=== PATIENT | male | born 1955 | race Caucasian/White ===

== ENCOUNTER 2020-08-17 13:24 | Emergency (ER) | payer MEDICARE, SELFPAY ==
[2020-08-17 13:35] VITALS: BP 151/101; PULSE 67; RESP 20; TEMP 37.2; O2SAT 99; BMI 24.3
--- NOTE | 2020-08-17 13:53 | ECG_ITS ---
Test Reason : CP Blood Pressure : / mmHG Vent. Rate : 064 BPM Atrial Rate : 064 BPM P-R Int : 174 ms QRS Dur : 114 ms QT Int : 398 ms P-R-T Axes : 069 -08 045 degrees QTc Int : 410 ms Normal sinus rhythm Possible Left atrial enlargement Left ventricular hypertrophy Abnormal ECG When compared with ECG of 18-SEP-2011 06:07, Questionable change in QRS axis Nonspecific T wave abnormality now evident in Anterolateral leads Referred By: Generic ED Physician Electronically Signed By:Alberto Fulton
--- NOTE | 2020-08-17 13:53 | XR_ITS ---
EXAMINATION: XR CHEST CLINICAL INFORMATION: Chest pain COMPARISON: Chest radiographs 05/07/2019, 08/19/2018; CT abdomen 01/17/2020. TECHNIQUE: Frontal and lateral views of the chest was obtained. FINDINGS: There is no pneumothorax or pleural reaction or effusion. The costophrenic sulci are clear. Heart is within the limits of normal size. The vascularity is normal. Tapering at the cardiophrenic angles is similar to prior exam and consistent with areolar tissue on CT. The hilar and mediastinal contours and bony structures are stable. Again, there are mild multilevel degenerative changes thoracic spine. XR/XR chest 2V IMPRESSION: No acute intrathoracic disease.
[2020-08-17 14:00] VITALS: PULSE 70; RESP 20; O2SAT 99
--- NOTE | 2020-08-17 14:21 | ED.CHESTPAIN ---
HPI - Chest Pain General Chief Complaint: Chest Pain Stated Complaint: chest pain Time Seen by Provider: 08/17/20 13:39 Source: patient Mode of arrival: ambulatory Limitations: no limitations History of Present Illness HPI narrative: This is a pleasant 65-year-old male with past medical history that is significant for mitral valve prolapse diagnosed and 2013 subsequently has had serial monitoring through [facility] most recently he tells me that he had echo done in August at [facility] [place], history of BPH status post cystoscopy, multiple TURPs and self catheterization daily p.r.n. for ureter stricture and anxiety disorder self manage not on any medications whom presents ambulatory via triage with complaint of intermittent pressure-like substernal chest pain ongoing for the past 2 weeks. Pain is being described as pressure like ache that will come and go. Aggravated by exertion and certain activities and alleviated with rest. He does somewhat contribute this to his anxiety as he reports that he suffers from anxiety related health and makes him very anxious to be in the hospital and thoughts of having health problems and at 1 point in 2012 he had to be hospitalized because he was having panic attacks secondary to finding out that he was diagnosed with mitral valve prolapse. States just prior to arrival he had pain that was pressure-like 2/10 and has alleviated now that he is resting. Currently no pain. No recent URI. No shortness of breath. No lower extremity swelling or pain. He denies any prior history of DVT/PE. He does tell me that he has been told that his blood pressure is on the higher side but he does not take any antihypertensives. 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 complaint: chest pain Onset (ago): week(s) (2 weeks ) Timing of current episode: episodic Onset: during exertion Pain location: substernal Pain radiation: none Severity: moderate Quality: tightness and aching Relieving factors: rest Exacerbating factors: exertion Treatment prior to arrival: none Related Data Allergies Allergy/AdvReac Type Severity Reaction Status Date / Time bee pollen [BEE STINGS] Allergy Unknown ANAPHYLAXIS Verified 08/17/20 13:39 bees Allergy Unknown Anaphylaxis Verified 08/17/20 13:39 Review of Systems Review of Systems: Constitutional: No Weight loss, No Fever, No Chills, No Night Sweats, No Fatigue, No Malaise ENT/Mouth: No Hearing loss, No Ear Pain, No Nasal Congestion, No Sinus Pain, No Hoarseness, No sore throat, No Rhinorrhea, No Swallowing Difficulty Eyes: No Eye Pain, No Swelling, No Redness, No Foreign Body, No Discharge, No Vision Changes Cardiovascular: No SOB, No Dyspnea on Exertion, No Orthopnea, No Edema, No Palpitations Respiratory: No Cough, No Sputum, No Wheezing, No Smoke Exposure, No Dyspnea Gastrointestinal: No Nausea, No Vomiting, No Diarrhea, No Constipation, No abdominal Pain, No Hematochezia, No Melena Genitourinary: no irregular bleeding, No Dysuria, No Urinary Frequency, No Hematuria, No Urinary Incontinence, No Urgency, No Flank Pain, No Urinary Flow Changes, No Hesitancy Musculoskeletal: No joint pain, No Myalgias, No Joint Swelling Skin: No Skin Lesions, No rash Neuro: No Weakness, No Numbness, No Paresthesias, No Loss of Consciousness, No Dizziness, No Headache Psych: No Social Issues Heme/Lymph: No Bruising, No Bleeding,No Lymphadenopathy Endocrine: No Polyuria, No Polydipsia, No Temperature Intolerance Yes all other systems are reviewed and are negative [facility] Past Medical History Medical History (Updated 08/17/20 @ 16:58 by Jose Roberto Bear NP) Depression Mitral valve prolapse Surgical History (Updated 08/17/20 @ 13:38 by Claudia Rodriguez) S/P TURP Social History Social History Alcohol intake: never Smoking Status: Never smoker Use of substances other than those prescribed or required for medical reasons: No Advance Directives: No Advance Directives Information Provided: Yes Physical Exam Vital Signs: Vital Signs: Last Vital Signs Temp 98.9 F 08/17/20 13:35 Pulse 69 08/17/20 19:42 Resp 15 08/17/20 19:42 BP 150/93 H 08/17/20 19:42 Pulse Ox 98 08/17/20 19:42 Body Mass Index 24.0 Reviewed Const: Other: Very forthcoming, tearful well telling me his story. General: cooperative; No acute distress or intoxicated appearing Nutritional Appearance: average body habitus Orientation/consciousness: patient oriented x3 HENMT: Head: Yes normal to inspection Ears: hearing grossly normal bilaterally Eyes: General: appearance normal, both eyes and all related structures Visual Bain: normal visual bain by confrontation Neck: Neck: Yes normal visual inspection, No positive Brudzinski's sign, No positive Kernig's sign and No tender Thyroid: Thyroid normal Chest: Chest palpation & inspection: normal inspection of the chest Resp: Effort & Inspection: normal respiratory effort Auscultation: clear to auscultation bilaterally Cardio: Jugular venous distension: no JVD Rhythm: regular rhythm Heart sounds: S1 normal heart sound present and S2 normal heart sound present GI: Inspection: Yes normal to inspection Palpation (GI): Soft to palpation Percussion: Yes normal to percussion Auscultation: normal bowel sounds : General: Yes no CVA tenderness Back/Spine/Pelvis: Back: no CVA tenderness Skin: General skin exam: no rashes or lesions noted Neuro: General: patient oriented x3 Extrem: General: Yes normal to inspection Course Consultations Consultation #1: [id number] Page placed to Cardiology Dr. Fulton - reviewed EKG There is these nonspecific T-wave changes in anterior lead given his history rec heparin gtt and d/w [facility] at [facility] [place] for transfer and further evaluation. Consultation #2: [id number] Case discussed with Qing at [facility] [facility] transfer Line who will connect me to [facility]ology covering and return call Consultation #3: [id number] Call return from [facility] [place] [facility] transfer line also [facility] cardiology Dr. Mosqueda covering [facility] Aware on heparin drip. Case discussed care excepted will call back with bed assignment. MDM - Chest Pain MDM Narrative Medical decision making narrative: In review 65-year-old male with history of mitral valve prolapse being followed by [facility]ology most recently echo August 2019, BPH status post cystoscopy/TURP with urethral strictures requiring p.r.n. catheterization once a day come in with pressure-like chest pain on off for the past 2 weeks. Otherwise no other symptoms or recent illness. EKG upon arrival normal sinus rhythm with LVH and nonspecific T-wave abnormalities in the anterior lateral leads. He subsequently underwent workup for ACS which revealed high sensitivity troponin is 667 CBC without evidence of anemia, slight leukocytosis of 11.9 but historically he has WBC is always elevated, initial coagulation factors and accepted range. D-dimer 267 within normal range for age adjusted renal function intact. No significant electrolyte derangement. Liver function tests within normal limits. Urine without evidence of infection. Rapid COVID/RSV/flu negative. Case was subsequently discussed with Cardiology Dr. Fulton- recommendation for heparin and consultation with Cardiology since patient is familiar with the service and being followed. I discussed case with Dr. Ramírez by the way of the transfer center at [facility] [place] [facility] discussed case in detail and patient accepted and to be medical services. Differential Diagnosis Differential diagnosis: Likely stable angina, atypical chest pain, st elevation myocardial infarction, costochondritis and chest pain; Unlikely fracture of rib, pneumothorax, unstable angina pectoris and biliary colic Medical Records Data Attestation: I reviewed the patient's medical records. Lab Data Attestation: I reviewed the patient's lab results. Result diagrams: 08/17/20 16:38 08/17/20 14:55 Labs: Lab Results 08/17/20 08/17/20 08/17/20 Range/Units 14:55 14:55 14:55 WBC 13.5 H (4.8-10.8) X10*3/uL RBC 5.23 (4.60-5.80) X10*6/uL Hgb 15.9 (14.0-18.0) g/dl Hct 48.0 (42-52) % MCV 91.8 (80-98) fL MCH 30.4 (27.0-33.0) pg MCHC 33.1 (31.0-36.0) g/dl RDW 13.5 (11.0-16.0) % Plt Count 291 (160-400) X10*3/uL MPV 9.6 (9.4-12.4) fL Immature Gran % (Auto) 0.4 (0.0-0.4) % Neut % (Auto) 90.9 H (45-73) % Lymph % (Auto) 5.5 L (20-40) % [place] % (Auto) 2.4 (2-11) % Eos % (Auto) 0.1 (0-4) % Baso % (Auto) 0.7 (0-2) % Lymph # (Auto) 0.8 L (1.2-4.9) X10*3/uL [place] # (Auto) 0.3 (0.1-1.2) X10*3/uL Eos # (Auto) 0.0 (0.0-0.4) X10*3/uL Baso # (Auto) 0.1 (0.0-0.2) X10*3/uL Abs Immat Gran (auto) 0.06 H (0.00-0.03) X10*3/uL Absolute Neuts (auto) 12.3 H (2.0-8.3) X10*3/uL Absolute Nucleated RBC 0.000 (0.0-0.012) X10*3/uL Nucleated RBC % (auto) 0.0 (0.0-0.2) /100WBC Smear Tech's Comments VERIFIED PT 11.9 (10.8-13.0) SEC INR 1.0 (0.9-1.1) APTT 35.2 (24.1-38.0) SEC PTT (Heparin Protocol) (53-77.9) SEC D-Dimer 262 NG/ML Hold Blue Top SEE NOTE Sodium 141 (135-145) mmol/L Potassium 5.1 (3.3-5.1) mmol/l Chloride 106 (96-108) mmol/L Carbon Dioxide 28 (22-29) mmol/L Anion Gap 12 (12-20) BUN 36 H (9-16) mg/dL Creatinine 1.09 (0.5-1.4) mg/dL Estim Creat Clear Calc 67.9 Estimated GFR > 60 Random Glucose 114 (60-115) mg/dL Calcium 9.8 (8.4-10.2) mg/dL Total Bilirubin 0.2 (0.0-1.0) mg/dL Direct Bilirubin < 0.2 (0.0-0.5) mg/dL AST 24 (5-37) U/L ALT 21 (0-40) U/L Alkaline Phosphatase 92 (39-117) U/L Troponin I High Sens (<3.5-35.0) ng/L Total Protein 7.2 (6.5-8.0) g/dL Albumin 4.5 (3.5-5.0) g/dL Lipase 27 (8-78) U/L Coronavirus (PCR) (Negative) Influenza Type A (PCR) (Negative) Influenza Type B (PCR) (Negative) RSV RNA Qual (PCR) (Negative) 08/17/20 08/17/20 08/17/20 Range/Units 14:55 14:56 16:38 WBC 11.9 H (4.8-10.8) X10*3/uL RBC 4.88 (4.60-5.80) X10*6/uL Hgb 15.0 (14.0-18.0) g/dl Hct 44.2 (42-52) % MCV 90.6 (80-98) fL MCH 30.7 (27.0-33.0) pg MCHC 33.9 (31.0-36.0) g/dl RDW 13.4 (11.0-16.0) % Plt Count 277 (160-400) X10*3/uL MPV 9.5 (9.4-12.4) fL Immature Gran % (Auto) (0.0-0.4) % Neut % (Auto) (45-73) % Lymph % (Auto) (20-40) % [place] % (Auto) (2-11) % Eos % (Auto) (0-4) % Baso % (Auto) (0-2) % Lymph # (Auto) (1.2-4.9) X10*3/uL [place] # (Auto) (0.1-1.2) X10*3/uL Eos # (Auto) (0.0-0.4) X10*3/uL Baso # (Auto) (0.0-0.2) X10*3/uL Abs Immat Gran (auto) (0.00-0.03) X10*3/uL Absolute Neuts (auto) (2.0-8.3) X10*3/uL Absolute Nucleated RBC 0.000 (0.0-0.012) X10*3/uL Nucleated RBC % (auto) 0.0 (0.0-0.2) /100WBC Smear Tech's Comments PT (10.8-13.0) SEC INR (0.9-1.1) APTT (24.1-38.0) SEC PTT (Heparin Protocol) (53-77.9) SEC D-Dimer NG/ML Hold Blue Top Sodium (135-145) mmol/L Potassium (3.3-5.1) mmol/l Chloride (96-108) mmol/L Carbon Dioxide (22-29) mmol/L Anion Gap (12-20) BUN (9-16) mg/dL Creatinine (0.5-1.4) mg/dL Estim Creat Clear Calc Estimated GFR Random Glucose (60-115) mg/dL Calcium (8.4-10.2) mg/dL Total Bilirubin (0.0-1.0) mg/dL Direct Bilirubin (0.0-0.5) mg/dL AST (5-37) U/L ALT (0-40) U/L Alkaline Phosphatase (39-117) U/L Troponin I High Sens 667.0 H (<3.5-35.0) ng/L Total Protein (6.5-8.0) g/dL Albumin (3.5-5.0) g/dL Lipase (8-78) U/L Coronavirus (PCR) NEGATIVE (Negative) Influenza Type A (PCR) NEGATIVE (Negative) Influenza Type B (PCR) NEGATIVE (Negative) RSV RNA Qual (PCR) NEGATIVE (Negative) 08/17/20 Range/Units 16:38 WBC (4.8-10.8) X10*3/uL RBC (4.60-5.80) X10*6/uL Hgb (14.0-18.0) g/dl Hct (42-52) % MCV (80-98) fL MCH (27.0-33.0) pg MCHC (31.0-36.0) g/dl RDW (11.0-16.0) % Plt Count (160-400) X10*3/uL MPV (9.4-12.4) fL Immature Gran % (Auto) (0.0-0.4) % Neut % (Auto) (45-73) % Lymph % (Auto) (20-40) % [place] % (Auto) (2-11) % Eos % (Auto) (0-4) % Baso % (Auto) (0-2) % Lymph # (Auto) (1.2-4.9) X10*3/uL [place] # (Auto) (0.1-1.2) X10*3/uL Eos # (Auto) (0.0-0.4) X10*3/uL Baso # (Auto) (0.0-0.2) X10*3/uL Abs Immat Gran (auto) (0.00-0.03) X10*3/uL Absolute Neuts (auto) (2.0-8.3) X10*3/uL Absolute Nucleated RBC (0.0-0.012) X10*3/uL Nucleated RBC % (auto) (0.0-0.2) /100WBC Smear Tech's Comments PT 12.1 (10.8-13.0) SEC INR 1.0 (0.9-1.1) APTT (24.1-38.0) SEC PTT (Heparin Protocol) 35.3 L (53-77.9) SEC D-Dimer NG/ML Hold Blue Top Sodium (135-145) mmol/L Potassium (3.3-5.1) mmol/l Chloride (96-108) mmol/L Carbon Dioxide (22-29) mmol/L Anion Gap (12-20) BUN (9-16) mg/dL Creatinine (0.5-1.4) mg/dL Estim Creat Clear Calc Estimated GFR Random Glucose (60-115) mg/dL Calcium (8.4-10.2) mg/dL Total Bilirubin (0.0-1.0) mg/dL Direct Bilirubin (0.0-0.5) mg/dL AST (5-37) U/L ALT (0-40) U/L Alkaline Phosphatase (39-117) U/L Troponin I High Sens (<3.5-35.0) ng/L Total Protein (6.5-8.0) g/dL Albumin (3.5-5.0) g/dL Lipase (8-78) U/L Coronavirus (PCR) (Negative) Influenza Type A (PCR) (Negative) Influenza Type B (PCR) (Negative) RSV RNA Qual (PCR) (Negative) Imaging Data Chest x-ray: Radiologist's impression: [address] [address] XRay Report Signed Patient: Eric Rosa LMR#: [id number] : 3Acct:[id number] Age/Sex: 65 / MADM Date: 08/17/20 Loc: HO.ED Attending Dr: Ordering Physician: Generic ED Physician Date of Service: 08/17/20 Procedure(s): XR chest 2V Accession Number(s): [id number] cc: Generic ED Physician~ EXAMINATION: XR CHEST CLINICAL INFORMATION: Chest pain COMPARISON: Chest radiographs 05/07/2019, 08/19/2018; CT abdomen 01/17/2020. TECHNIQUE: Frontal and lateral views of the chest was obtained. FINDINGS: There is no pneumothorax or pleural reaction or effusion. The costophrenic sulci are clear. Heart is within the limits of normal size. The vascularity is normal. Tapering at the cardiophrenic angles is similar to prior exam and consistent with areolar tissue on CT. The hilar and mediastinal contours and bony structures are stable. Again, there are mild multilevel degenerative changes thoracic spine. XR/XR chest 2V IMPRESSION: No acute intrathoracic disease. Dictated By:SO FAUST MD Signed By:<Electronically signed by SO FAUST MD in OV>08/17/20 1436 DD/ 1353 TD/TT: Emergency Veterinarian: MCKOY ECG Data ECG #1: Interpretation: Normal sinus rhythm Possible Left atrial enlargement Left ventricular hypertrophy Nonspecific T-wave abnormality in the anterior leads New since 09/18/2011 Scores Heart Score History: -1- moderately suspicious ECG: -1- non specific repolarization disturbance Age: -2- > or = 65 Risk factory: -1- 1 or 2 risk factors Troponin: -2- > or = 3x normal limit Score: 7 Risk: 50.1% Critical Care Time Critical Care Time Critical Care Time: Yes Total Critical Care Time: 65 Attestation: Multiple re-evaluation at bedside for evaluation of hemodynamic stability, consultation with Cardiology and arrangement of transfer to tertiary facility, management of anticoagulation therapy. Discharge Plan Discharge Clinical Impression: Non-ST elevated myocardial infarction Patient Disposition: Xfer Other Additional Instructions: Patient transferred to [facility] [place]
[2020-08-17 15:06] LABS: Basophils Absolute Auto 0.1 X10*3/uL (0.0-0.2); Basophils Percent Auto 0.7 % (0-2); Eosinophils Percent Auto 0.1 % (0-4); Hemoglobin 15.9 g/dl (14.0-18.0); Imm Gran Abs Auto 0.06 X10*3/uL (0.00-0.03); Imm Gran Pct Auto 0.4 % (0.0-0.4); Lymphocytes Absolute Auto 0.8 X10*3/uL (1.2-4.9); Lymphocytes Percent Auto 5.5 % (20-40); MANUAL DIFF FLAG SCAN; Mean Corpuscular HGB Conc 33.1 g/dl (31.0-36.0); Mean Corpuscular Hemoglobin 30.4 pg (27.0-33.0); Mean Corpuscular Volume 91.8 fL (80-98); Mean Platelet Volume 9.6 fL (9.4-12.4); Monocytes Absolute Auto 0.3 X10*3/uL (0.1-1.2); Monocytes Percent Auto 2.4 % (2-11); Neutrophils Absolute Auto 12.3 X10*3/uL (2.0-8.3); Neutrophils Percent Auto 90.9 % (45-73); Platelet Count 291 X10*3/uL (160-400); Red Blood Count 5.23 X10*6/uL (4.60-5.80); Red Cell Distribution Width 13.5 % (11.0-16.0); SCAN SMEAR FLAG 1; White Blood Count 13.5 X10*3/uL (4.8-10.8)
[2020-08-17 15:13] LABS: Prothrombin Time 11.9 SEC (10.8-13.0)
[2020-08-17 15:15] LABS: Partial Thromboplastin Time 35.2 SEC (24.1-38.0)
[2020-08-17 15:31] LABS: Alanine Aminotransferase 21 U/L (0-40); Albumin Level 4.5 g/dL (3.5-5.0); Alkaline Phosphatase 92 U/L (39-117); Anion Gap 12 (12-20); Aspartate Amino Transferase 24 U/L (5-37); Bilirubin Direct < 0.2 mg/dL (0.0-0.5); Bilirubin Total 0.2 mg/dL (0.0-1.0); Blood Urea Nitrogen 36 mg/dL (9-16); Calcium 9.8 mg/dL (8.4-10.2); Carbon Dioxide 28 mmol/L (22-29); Chloride 106 mmol/L (96-108); Creatinine Clr Calc Pharmacy 67.9; Estimated Glomerular Filt Rate > 60; Glucose Random 114 mg/dL (60-115); Lipase 27 U/L (8-78); Potassium 5.1 mmol/l (3.3-5.1); Sodium 141 mmol/L (135-145); Total Protein 7.2 g/dL (6.5-8.0)
[2020-08-17 15:32] LABS: SLIDE REVIEW VERIFIED
[2020-08-17 16:00] VITALS: PULSE 71; RESP 19; O2SAT 99
[2020-08-17 16:01] LABS: Influenza A PCR NEGATIVE (Negative); Influenza B PCR NEGATIVE (Negative); Resp Syncy Virus RNA Qual PCR NEGATIVE (Negative); SARS COV2 PCR INHOUSE NEGATIVE (Negative)
[2020-08-17 16:06] LABS: D Dimer 262 NG/ML
--- NOTE | 2020-08-17 16:08 | PC.NURSE ---
[facility] PT TX CALL @ THIS TIME @ REQUEST OF LAUNDERETTE ATTENDANT ROCKYEJRRY GRISSOM ANSWERS, TAKES PT INFO AND ASKS TO SPEAK WITH ROCKY ROCKY TAKES OVER CALL RIGHT AWAY
[2020-08-17 16:44] LABS: Hematocrit 44.2 % (42-52); Mean Corpuscular HGB Conc 33.9 g/dl (31.0-36.0); Mean Corpuscular Hemoglobin 30.7 pg (27.0-33.0); Mean Corpuscular Volume 90.6 fL (80-98); Mean Platelet Volume 9.5 fL (9.4-12.4); Platelet Count 277 X10*3/uL (160-400); Red Blood Count 4.88 X10*6/uL (4.60-5.80); Red Cell Distribution Width 13.4 % (11.0-16.0); White Blood Count 11.9 X10*3/uL (4.8-10.8)
[2020-08-17] MEDS: Heparin Sodium,Porcine 5,000 UNIT/ML VIAL 4000 UNIT IVPUSH (16:55)
[2020-08-17 16:57] VITALS: BMI 24.0
[2020-08-17] MEDS: Heparin Sodium,Porcine/1/2NS 25,000 UNIT/250 ML IV.SOLN 9.25 UNIT IVCONT (16:58)
[2020-08-17 17:00] LABS: Prothrombin Time 12.1 SEC (10.8-13.0)
[2020-08-17 17:02] LABS: PTT Heparin Drip 35.3 SEC (53-77.9)
[2020-08-17 17:40] VITALS: PULSE 70
--- NOTE | 2020-08-17 17:40 | PC.NURSE ---
RETURN CALL @ 1986 FROM JACIEL @ [facility] PT PLACEMENT ROOM ASSIGNMENT MASS MUTUAL 7, BED 3 RN TO RN [phone] RYDER
--- NOTE | 2020-08-17 18:26 | PC.NURSE ---
Report given to Keith DEVINE on M7 at [facility].
[2020-08-17 19:42] VITALS: BP 150/93; PULSE 69; RESP 15; O2SAT 98
== END 2020-08-17 22:03 | disposition other institution (70) ==
PROVIDERS: Nurse Practitioner Primary Care; Emergency Provider Emergency Medicine; PCP Internal Medicine
DX: I21.4 Non-ST elevation (NSTEMI) myocardial infarction (principal); Z20.828 Contact with and (suspected) exposure to other viral communicable diseases
CPT/HCPCS: 0241U; 36415; 71046; 80048; 80076; 83690; 84484; 85025; 85027; 85379; 85610; 85730; 93005; 96374; 99285; 99291

== ENCOUNTER 2023-09-29 02:47 | Emergency (ER) | payer MEDICARE, SELFPAY ==
--- NOTE | ~2023-09-29 | CT_ITS ---
EXAMINATION: CT ABDOMEN AND PELVIS WITHOUT CONTRAST CLINICAL INFORMATION: Possible ventral hernia. Mass felt right abdomen. COMPARISON: 01/17/2020. TECHNIQUE: Multidetector volumetric imaging was performed from the superior aspect of the liver through the pubic symphysis. Sagittal and coronal reformatted images were obtained on the technologist's workstation. This CT examination was performed using dose optimization techniques as appropriate, variously including the following: *Automated exposure control *Adjustment of mA and/or kV according to patient size (this includes techniques or standardized protocols for targeted exams where dose is matched to indication/reason for exam; i.e. extremities or head) *Use of iterative reconstruction technique DLP: 568 mGy-cm FINDINGS: LUNG BASES: The visualized lung bases are unremarkable. LIVER, GALLBLADDER, AND BILIARY TREE: The liver is normal in size, shape, and attenuation. No focal hepatic lesion or biliary ductal dilatation is present. The gallbladder is unremarkable with no evidence of radiopaque gallstones, gallbladder wall thickening, or obvious pericholecystic inflammatory changes. PANCREAS: Unremarkable. SPLEEN: Unremarkable. ADRENAL GLANDS: Unremarkable. KIDNEYS AND URETERS: The kidneys are normal in size, shape, and attenuation. No hydronephrosis, hydroureter, or calculi seen. No perinephric stranding. There is a 2 cm cyst mid to lower pole right kidney. There is a 2.4 cm cyst lower pole left kidney. BLADDER: Unremarkable. GASTROINTESTINAL TRACT: There is retained stool most significant in the right colon. The appendix is prominent in size measuring up to 7 mm but otherwise unremarkable. ABDOMINAL WALL: There is a small umbilical hernia containing fat. LYMPH NODES: Normal. VASCULAR: There is atherosclerotic plaque of the abdominal aorta and proximal branches. PELVIC VISCERA: Unremarkable. OSSEOUS STRUCTURES: There is thoracolumbar disc degenerative change. CT/CT abdomen pelvis wo IV con IMPRESSION: 1. Small umbilical hernia containing fat. 2. Bilateral renal cysts. 3. Retained stool. 4. The appendix is borderline in size measuring up to 7 mm but otherwise unremarkable. Correlation needed. Fleischner guidelines were followed.
[2023-09-29 02:52] VITALS: BP 148/97; PULSE 64; RESP 16; TEMP 37.1; O2SAT 96; BMI 28.7
[2023-09-29 03:31] VITALS: BP 174/99; PULSE 64; RESP 16; TEMP 36.6; O2SAT 99
--- NOTE | 2023-09-29 03:31 | ED.GENADULT ---
HPI - General Adult General Chief complaint: General Medical Stated complaint: Abd pain ? hernia Time Seen by Provider: 09/29/23 03:08 Source: patient and old records reviewed Mode of arrival: ambulatory Limitations: no limitations History of Present Illness HPI narrative: 68 yo male with PMH of CAD s/p 3V CABG and mitral valve valvuloplasty at in 2020 states he had a really prolonged URI back in July and [facility] put him on antibiotics, INH and anti-tussive. He now feels like R abdomen has protruding mass/henrnia. No n/v bowel or bladder issues. He just wants to know what the mass is. MD complaint: mass Onset (ago): week(s) Location: abdomen Radiation: non-radiation Severity: mild Relieving factors: none Exacerbating factors: other (cough, movement) Associated symptoms: denies other symptoms Treatments prior to arrival: none Related Data Home Medications Medication Instructions Recorded Confirmed aspirin 81 mg tablet,delayed 81 mg PO DAILY 02/11/22 release atorvastatin 80 mg tablet 80 mg PO DAILY 02/11/22 fluoxetine 20 mg capsule 20 mg PO DAILY 02/11/22 metoprolol succinate 25 mg 25 mg PO DAILY 02/11/22 tablet,extended release 24 hr Previous Rx's Medication Instructions Recorded azithromycin 250 mg tablet See Rx Instructions PO .COMPLEX #6 02/11/22 tabs Allergies Allergy/AdvReac Type Severity Reaction Status Date / Time bee pollen [BEE STINGS] Allergy Unknown ANAPHYLAXIS Verified 02/11/22 09:24 bees Allergy Unknown Anaphylaxis Verified 02/11/22 09:24 Review of Systems Review of Systems: Constitutional : No Fever, No Chills, No Fatigue ENT/Mouth : No sore throat, No Rhinorrhea Eyes: No Eye Pain, No Swelling, No Redness Cardiovascular : No Chest Pain, No SOB, No Dyspnea on Exertion Respiratory : No Cough, No Sputum Gastrointestinal : No Nausea, No Vomiting, No Diarrhea, No abdominal Pain Genitourinary : No Dysuria, No Urinary Frequency, No Hematuria, Musculoskeletal : No joint pain, No Myalgias, No Joint Swelling Skin : No Skin Lesions, No rash Neuro : No Weakness, No Numbness, No Dizziness, noHeadache All other systems reviewed and are negative PMFSH Past Medical History Attestation statement: The following information was validated with the patient. Source: old records reviewed Medical History CAD (coronary artery disease) Depression Mitral valve prolapse Surgical History S/P CABG x 3 S/P TURP Social History Social History (Updated 09/29/23 @ 03:34 by Mignon Elaine DO) Alcohol intake: never Patient Tobacco Use Status: Tobacco use Unknown Smoked in Last 30 Days: No Use of substances other than those prescribed or required for medical reasons: No Advance Directives: No Advance Directives Information Provided: No Physical Exam ED Vital Signs: Vital Signs - 24 hr 09/29/23 02:52 09/29/23 03:31 09/29/23 05:49 Temperature 98.8 F 97.8 F 97.9 F Pulse Rate 64 64 60 Respiratory Rate 16 16 14 Blood Pressure 148/97 H 174/99 H 152/89 H Pulse Oximetry 96 99 97 Oxygen Delivery Method Room Air Room Air Room Air BMI result Body Mass Index 28.7 Appearance: Alert. Oriented X3. No acute distress. Eyes: Pupils equal, round and reactive to light. ENT: Pharynx normal. Neck: Normal inspection. Neck supple. CVS: Normal heart rate and rhythm. Pulses normal. Respiratory: No respiratory distress. Breath sounds normal. Abdomen: Soft and nontender. No mass felt no hernia felt I feel scar tissue from mediastinal chest tube site but otherwise no diastasis or mass felt Skin: Skin warm and dry. Normal skin color. Normal skin turgor. Extremities: No lower extremity edema. No calf ttp Neuro: Oriented X 3. No motor deficit. No sensory deficit. Course Course Course Narrative: patient has no pain in RLQ no appendicitis concerns at this time Medical Decision Making Medical Decision Making MDM Narrative: 68 yo male wiht CAD and valve ds s/p CABG and valvuloplasty here with c/o feeling a mass/hernia R side of abdomen no GI or symptoms at this time not toxic, benign abdomen will obtain CT scan for mass. Differential Diagnosis Differential Diagnoses: The differential diagnosis associated with the presentation includes hernia, scar from old chest tube site Independent Interpretation I performed an independent interpretation of an: CT Scan Radiology Impression Discussion of test interpretation with radiology: I have reviewed the radiologist's reading. External Record Review External record reviewed: Inpatient record Discharge Plan Discharge Clinical Impression: Abdominal wall strain Qualifiers: Encounter type: initial encounter Qualified Code(s): S39.011A - Strain of muscle, fascia and tendon of abdomen, initial encounter Patient Disposition: Home, Self-Care Instructions: Muscle Strain (ED) Additional Instructions: I do not see a hernia on CT scan. It could be a muscular strain. There is no open defect on the CT scan of the abdominal wall muscles. You also could be feeling remnats of scar tissue from prior surgery chest tube sites that were exacerbated by this cough. please follow up with our general surgery team for further evaluation if this continues to bother you. ABDOMINAL WALL: There is a small umbilical hernia containing fat. your aorta also has some plaque in the finn no acute findings to suggsest large hernia or defect. Prescriptions: No Action metoprolol succinate 25 mg tablet extended release 24 hr 25 mg PO DAILY aspirin 81 mg tablet,delayed release (DR/EC) 81 mg PO DAILY atorvastatin 80 mg tablet 80 mg PO DAILY fluoxetine 20 mg capsule 20 mg PO DAILY azithromycin 250 mg tablet See Rx Instructions PO .COMPLEX Qty: 6 0RF Rx Instructions: take 500 mg today (day 1), then 250 mg for 4 days (days 2-5) PO Referrals: Jimbo Eckert MD [Physician] - (call to schedule appointment)
[2023-09-29 05:49] VITALS: BP 152/89; PULSE 60; RESP 14; TEMP 36.6; O2SAT 97
== END 2023-09-29 06:48 | disposition home or self-care (01) ==
PROVIDERS: Emergency Provider Emergency Medicine; PCP Emergency Medicine
DX: S39.011A Strain of muscle, fascia and tendon of abdomen, initial encounter (principal); R19.00 Intra-abdominal and pelvic swelling, mass and lump, unspecified site; X50.9XXA Other and unspecified overexertion or strenuous movements or postures, initial encounter; Z95.1 Presence of aortocoronary bypass graft; Z79.82 Long term (current) use of aspirin; Z79.02 Long term (current) use of antithrombotics/antiplatelets; Y93.9 Activity, unspecified; Y92.9 Unspecified place or not applicable; Y99.9 Unspecified external cause status
CPT/HCPCS: 74176; 99284

== ENCOUNTER 2023-10-11 14:32 | Outpatient (AMB) | payer MEDICARE, SELFPAY ==
--- NOTE | 2023-10-11 14:33 | MHC.OFFVIS ---
Intake Vital Signs 10/11/23 14:45 Height 5 ft 8 in Weight 188 lb BMI 28.6 BP 126/80 Blood Pressure Location Rt brachial Position Sitting Pulse 68 Intake Visit Reasons: ? small umbilical hernia Intake Note: This patient [place] [facility] [place] small umbilical hernia. Pt c/o; Onset 4 years ago, reports bulge, reports no pain, reports in Jul 2023 had viral illnesses and cough so much the pain and discomfort were more noticeable. 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 small umbilical hernia HPI Details 68-year-old male referred for an umbilical hernia. He actually went to the ER for a question of an abdominal strain 2 weeks ago. He was noted to have a small umbilical hernia and was referred to me. He says that he has had this small reducible lump on his umbilicus for many years. He says that he really did not have any pain on this area before He has a history of open heart surgery for three-vessel bypass and valvuloplasty in [place] about 3 years ago. He says that he has been doing very well after that. He denies any significant shortness of breath with activity. [facility] Medical History (Updated 10/11/23 @ 15:11 by Jimbo Eckert MD) Umbilical hernia CAD (coronary artery disease) Depression Mitral valve prolapse Surgical History History of hip surgery S/P CABG x 3 S/P TURP Social History Alcohol intake: never Patient Tobacco Use Status: Tobacco use Unknown Review of Systems Const Denies chills and Denies fever(s) Card Denies chest pain, Denies dyspnea and Denies dyspnea on exertion Resp Denies cough, Denies dyspnea and Denies dyspnea on exertion GI Denies hematochezia and Denies change in bowel habits Denies hematuria and Denies difficulty urinating Musc Denies back pain and Denies limited range of motion Neuro Denies focal weakness and Denies convulsions Psych Reports anxiety, Denies depression and Denies mood swings Physical Exam Vital Signs: Last Vital Signs Pulse 68 10/11/23 14:45 BP 126/80 10/11/23 14:45 BMI result Body Mass Index 28.6 Const General: comfortable and no acute distress Orientation/consciousness: patient oriented x3 Neck Neck: Yes no lymphadenopathy Resp Auscultation: clear to auscultation bilaterally Cardio Rhythm: regular rhythm GI Other: Umbilical hernia with a defect about 1 cm in diameter, easily reducible Palpation (GI): Soft to palpation, nontender and no guarding Neuro General: patient oriented x3 Assessment & Plan Assessment & Plan (1) Umbilical hernia: Code(s): K42.9 - Umbilical hernia without obstruction or gangrene Plan: He has a small reducible umbilical hernia as described above. He really did not have any significant pain or tenderness with this. However, he feels that he is healthy enough to undergo repair. 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 I explained to the technique of repair of the umbilical hernia with possible mesh. I discussed the risks including but not limited to bleeding, infections, bowel injury, recurrence, as well as the benefits and alternatives. I reviewed with him what to expect postoperatively He wants to proceed We will set him up for a PAT appointment as well because of his history of coronary bypass surgery and valvuloplasty. Coding Level of Care Code New Pt Level 3 (25950) Diagnoses Umbilical hernia K42.9
[2023-10-11 14:45] VITALS: BP 126/80; PULSE 68; BMI 28.6
== END 2023-10-11 15:07 | disposition home or self-care (01) ==
PROVIDERS: PCP Emergency Medicine; Visit Provider Surgery
DX: K42.9 Umbilical hernia without obstruction or gangrene (principal)
CPT/HCPCS: 99203

== ENCOUNTER → 2023-10-11 14:32 | Outpatient (BNVA) | payer MEDICARE, SELFPAY | PROVIDERS: PCP Emergency Medicine; Visit Provider Surgery | DX: K42.9 Umbilical hernia without obstruction or gangrene (principal) | CPT/HCPCS: 99202 ==

== ENCOUNTER → 2024-01-14 13:56 | Outpatient (BNV) | payer MEDICARE, SELFPAY | PROVIDERS: PCP Nurse Practitioner Family; Visit Provider Internal Medicine Cardiovascular Disease | DX: I49.8 Other specified cardiac arrhythmias (principal) | CPT/HCPCS: 93010 ==

== ENCOUNTER 2024-01-22 05:53 | Day surgery (SDC) | payer MEDICARE, SELFPAY ==
--- NOTE | 2024-01-14 | ECG_ITS ---
Test Reason : PREOP Blood Pressure : / mmHG Vent. Rate : 060 BPM Atrial Rate : 060 BPM P-R Int : 186 ms QRS Dur : 106 ms QT Int : 438 ms P-R-T Axes : 063 -21 039 degrees QTc Int : 438 ms Sinus rhythm with Fusion complexes Otherwise normal ECG When compared with ECG of 17-AUG-2020 13:33, Fusion complexes are now Present Referred By: Sanjuanita Juarez Electronically Signed By:VINCENT MEYERS MD
[2024-01-14 13:18] VITALS: BP 120/86; PULSE 65; RESP 16; O2SAT 98; BMI 26.4
--- NOTE | 2024-01-14 13:34 | P.CONAN_ITS ---
Documented by User: Sanjuanita Juarez NP 01/18/24 12:30 HPI - Anesthesia Eval Consult details Narrative: 68yo M for Repair Hernia Umbilical Reducible with Possible Mesh, 01/22/24 Follows with [facility] cardiology. CAD with AK s/p CABG x 3 and mitral valve repair 2020. Stable at 05/2023 office visit. No issues since 2020 intervention. Office notes on chart. 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 [facility] Active Problems Active Problems: All Active Problems Upper respiratory tract infection (Acute) Umbilical hernia (Acute) Past Medical History Medical History Anxiety Hx of acute bronchitis (08/2023) RSV (respiratory syncytial virus infection) (08/2023) PAD (peripheral artery disease) NSTEMI (non-ST elevated myocardial infarction) (~08/2020) ASHD (arteriosclerotic heart disease) History of transesophageal echocardiography (MICHELE) Umbilical hernia CAD (coronary artery disease) Depression Mitral valve prolapse Family History Family history of problems with anesthesia: No Surgical History Surgical History Hx of transurethral resection of prostate (~2004) Hx of cystoscopy (~2017) Hx of colonoscopy History of total left hip arthroplasty (~2021) Hx of mitral valve repair (~2020) Hx of cardiac cath S/P CABG x 3 (~2020) S/P TURP History of Problems with Anesthesia: No Social History Social History (Updated 01/14/24 @ 13:41 by Ellie Blanco RN) Household Members: None Housing: House Are you a primary healthcare administration intern to a significant other at home: No Do you presently have visiting nurse or other home services: No Alcohol intake: never Patient Tobacco Use Status: Never used Tobacco Use of substances other than those prescribed or required for medical reasons: No Have you been hit, kicked, punched, or otherwise hurt by someone within the past year? If so, by whom?: No Are you DNR?: No Advance Directives: No Advance Directives Information Provided: Yes Advance Directives on File: No Recently lost weight without trying: No Nutrition Risks: No Nutritional Risk Poor oral hygiene: No Meds Allergies Allergy/AdvReac Type Severity Reaction Status Date / Time bees Allergy Severe Anaphylaxis Verified 01/22/24 06:04 BEE STINGS Home Medications ?Medication ?Instructions ?Recorded ?Confirmed ?Last Taken ?Type aspirin 81 mg tablet,delayed 81 mg PO DAILY 02/11/22 01/14/24 01/21/24 History release atorvastatin 80 mg tablet 80 mg PO DAILY 02/11/22 01/14/24 Unknown History metoprolol succinate 25 mg 25 mg PO DAILY 02/11/22 01/14/24 01/22/24 05:30 History tablet,extended release 24 hr acetaminophen 500 mg tablet 500 mg PO Q6H PRN Pain 01/14/24 01/14/24 Unknown History albuterol sulfate 90 mcg/actuation 2 puff inhalation Q6H PRN 01/14/24 01/14/24 Unknown History aerosol inhaler (Ventolin HFA) Shortness Of Breath Or Wheezing fluoxetine 40 mg capsule 40 mg PO DAILY 01/14/24 01/14/24 01/22/24 05:30 History Exam Height,Weight and Vital Signs: Height 5 ft 8 in Weight 78.8 kg Last Vital Signs Pulse 65 01/14/24 13:18 Resp 16 01/14/24 13:18 BP 120/86 01/14/24 13:18 Pulse Ox 98 01/14/24 13:18 O2 Del Method Room Air 01/14/24 13:18 Pertinent Lab Results Pertinent Lab Results: Lab Results 01/14/24 Range/Units 14:04 WBC 7.0 (4.8-10.8) X10*3/uL RBC 4.85 (4.60-5.80) X10*6/uL Hgb 14.8 (14.0-18.0) g/dl Hct 44.9 (42.0-52.0) % MCV 92.6 (80.0-98.0) fL MCH 30.5 (27.0-33.0) pg MCHC 33.0 (31.0-36.0) g/dl RDW 13.8 (11.0-16.0) % Plt Count 291 (160-400) X10*3/uL MPV 10.3 (9.4-12.4) fL Absolute Nucleated RBC 0.000 (0.0-0.012) X10*3/uL Nucleated RBC % (auto) 0.0 (0.0-0.2) /100WBC Sodium 142 (135-145) mmol/L Potassium 4.7 (3.3-5.1) mmol/L Chloride 108 (96-108) mmol/L Carbon Dioxide 29 (22-29) mmol/L Anion Gap 10 L (12-20) BUN 25 H (9-16) mg/dL Creatinine 0.97 (0.5-1.4) mg/dL Estim Creat Clear Calc 68.5 Estimated GFR > 60 Random Glucose 100 (60-115) mg/dL Calcium 9.8 (8.4-10.2) mg/dL Narrative Narrative: EKG 01/2024 Vent. Rate : 060 BPM Atrial Rate : 060 BPM P-R Int : 186 ms QRS Dur : 106 ms QT Int : 438 ms P-R-T Axes : 063 -21 039 degrees QTc Int : 438 ms Sinus rhythm with Fusion complexes Otherwise normal ECG When compared with ECG of 17-AUG-2020 13:33, Fusion complexes are now Present Airway Mallampati Class: II TM Dist: >3cm Neck ROM: Full Loose/Missing/Broken Teeth: No (Right side permanent bridge) Heart: RRR Lungs: CTAB Assessment and Plan Assessment Anesthesia Assessment: Anesthesia Plan Discussed and PAT Visit Final Anesthetic Review Family History of Problems with Anesthesia: No History of Problems with Anesthesia: No Documented by User: Augustine Grimm MD 01/22/24 07:32 [facility] Past Medical History Medical History Anxiety Hx of acute bronchitis (08/2023) RSV (respiratory syncytial virus infection) (08/2023) PAD (peripheral artery disease) NSTEMI (non-ST elevated myocardial infarction) (~08/2020) ASHD (arteriosclerotic heart disease) History of transesophageal echocardiography (MICHELE) Umbilical hernia CAD (coronary artery disease) Depression Mitral valve prolapse Surgical History Surgical History Hx of transurethral resection of prostate (~2004) Hx of cystoscopy (~2017) Hx of colonoscopy History of total left hip arthroplasty (~2021) Hx of mitral valve repair (~2020) Hx of cardiac cath S/P CABG x 3 (~2020) S/P TURP Social History Social History (Updated 01/14/24 @ 13:41 by Ellie Blanco RN) Household Members: None Housing: House Are you a primary healthcare administration intern to a significant other at home: No Do you presently have visiting nurse or other home services: No Alcohol intake: never Patient Tobacco Use Status: Never used Tobacco Use of substances other than those prescribed or required for medical reasons: No Have you been hit, kicked, punched, or otherwise hurt by someone within the past year? If so, by whom?: No Are you DNR?: No Advance Directives: No Advance Directives Information Provided: Yes Advance Directives on File: No Recently lost weight without trying: No Nutrition Risks: No Nutritional Risk Poor oral hygiene: No Meds Allergies Allergy/AdvReac Type Severity Reaction Status Date / Time bees Allergy Severe Anaphylaxis Verified 01/22/24 06:04 BEE STINGS Home Medications ?Medication ?Instructions ?Recorded ?Confirmed ?Last Taken ?Type aspirin 81 mg tablet,delayed 81 mg PO DAILY 02/11/22 01/14/24 01/21/24 History release atorvastatin 80 mg tablet 80 mg PO DAILY 02/11/22 01/14/24 Unknown History metoprolol succinate 25 mg 25 mg PO DAILY 02/11/22 01/14/24 01/22/24 05:30 History tablet,extended release 24 hr acetaminophen 500 mg tablet 500 mg PO Q6H PRN Pain 01/14/24 01/14/24 Unknown History albuterol sulfate 90 mcg/actuation 2 puff inhalation Q6H PRN 01/14/24 01/14/24 Unknown History aerosol inhaler (Ventolin HFA) Shortness Of Breath Or Wheezing fluoxetine 40 mg capsule 40 mg PO DAILY 01/14/24 01/14/24 01/22/24 05:30 History Exam Pertinent Lab Results Pertinent Lab Results: u Lab Results 01/14/24 Range/Units 14:04 WBC 7.0 (4.8-10.8) X10*3/uL RBC 4.85 (4.60-5.80) X10*6/uL Hgb 14.8 (14.0-18.0) g/dl Hct 44.9 (42.0-52.0) % MCV 92.6 (80.0-98.0) fL MCH 30.5 (27.0-33.0) pg MCHC 33.0 (31.0-36.0) g/dl RDW 13.8 (11.0-16.0) % Plt Count 291 (160-400) X10*3/uL MPV 10.3 (9.4-12.4) fL Absolute Nucleated RBC 0.000 (0.0-0.012) X10*3/uL Nucleated RBC % (auto) 0.0 (0.0-0.2) /100WBC Sodium 142 (135-145) mmol/L Potassium 4.7 (3.3-5.1) mmol/L Chloride 108 (96-108) mmol/L Carbon Dioxide 29 (22-29) mmol/L Anion Gap 10 L (12-20) BUN 25 H (9-16) mg/dL Creatinine 0.97 (0.5-1.4) mg/dL Estim Creat Clear Calc 68.5 Estimated GFR > 60 Random Glucose 100 (60-115) mg/dL Calcium 9.8 (8.4-10.2) mg/dL Assessment and Plan Assessment Anesthesia Assessment: Chart Reviewed Final Anesthetic Review NPO: Yes Final Preanesthetic Review: No Changes in Pt Med Stat, Meds/Allgs Chart Reviewed, Consent Obtained/Reviewed and Anes Risks/Benef Reviewed Patient Risk: Intermediate Procedure Risk: Low Anesthetic Plan Anesthetic Plan: GA Disposition: Standard PACU
[2024-01-14 14:45] LABS: Hematocrit 44.9 % (42.0-52.0); Hemoglobin 14.8 g/dl (14.0-18.0); Mean Corpuscular Hemoglobin 30.5 pg (27.0-33.0); Mean Corpuscular Volume 92.6 fL (80.0-98.0); Mean Platelet Volume 10.3 fL (9.4-12.4); Platelet Count 291 X10*3/uL (160-400); Red Blood Count 4.85 X10*6/uL (4.60-5.80); Red Cell Distribution Width 13.8 % (11.0-16.0)
[2024-01-14 15:14] LABS: Anion Gap 10 (12-20); Blood Urea Nitrogen 25 mg/dL (9-16); Calcium 9.8 mg/dL (8.4-10.2); Carbon Dioxide 29 mmol/L (22-29); Chloride 108 mmol/L (96-108); Creatinine Clr Calc Pharmacy 68.5; Estimated Glomerular Filt Rate > 60; Glucose Random 100 mg/dL (60-115); Potassium 4.7 mmol/L (3.3-5.1); Sodium 142 mmol/L (135-145)
[2024-01-22 06:21] VITALS: BP 135/77; PULSE 58; RESP 15; TEMP 36.5; O2SAT 97
[2024-01-22] MEDS: Lactated Ringers 1,000 ML 100 ML IVCONT (06:31)
--- NOTE | 2024-01-22 07:27 | MHC.SHP ---
Pre-Procedural Eval Section A - 24 Hr Update-Section A only Date of Service: 01/22/24 Section B - Complete if H&P > 30 days Chief Complaint: Umbilical hernia without obstruction or gangrene Details of Present Illness: Has a small reducible umbilical mass Relevant Family History (Specify if Yes): No Relevant Social History: None Present Medications: see Short Stay Collaborative assessment Medical History: Significant History (Hypertension, asthma, hyperlipidemia) History of Previous Operations: No relevant previous surgery Allergies: Allergies Allergy/AdvReac Type Severity Reaction Status Date / Time bees Allergy Severe Anaphylaxis Verified 01/22/24 06:04 BEE STINGS Review of Systems Sugical H&P ROS: Negative: Constitution, Cardiovascular, Respiratory, Neurological, Psychiatric, Hem-Onc, Allergic/Immunologic, Gastrointestinal, Genitourinary, Musculoskeletal, Integumentary, Endocrine and Eyes/Ears/Nose/Throat Exam Surgical H&P Exam: Normal: HEENT, Normal: Heart, Normal: Lungs, Normal: Extremities, Normal: Skin and Normal: Neurological and Significant Findings: Abdomen (Small reducible umbilical hernia) Plan Diagnosis/Plan: Unchanged I have reviewed the history and physical and performed a pertinent physical examination on my patient. No changes have occurred unless specified. Time Spent With Patient Time: Total time managing care of this patient today ____ minutes.
--- NOTE | 2024-01-22 08:04 | P.OP_ITS ---
Operative Note Operative Note Date of Service: 01/22/24 Narrative: Preop diagnosis: Umbilical hernia, reducible Postop diagnosis: Umbilical hernia, reducible, about a cm in diameter Procedure: Repair of umbilical hernia with Ventralex mesh Surgeon: Jimbo Eckert MD urgent care physician assistant: RAFAEL López The patient is a 68-year-old male with a reducible umbilical hernia. He wanted to proceed with repair. He understood the technique of the planned procedure as well as the risks, benefits, and alternatives He was brought to the operating room. He was placed supine under general anesthesia via laryngeal mask airway. The abdomen was prepped and draped in the usual sterile fashion. A surgical time-out was done. The patient received cefazolin 2 g IV preoperatively I infiltrated my planned line of incision with lidocaine 1%. He had a transverse curvilinear incision on the supraumbilical margin using a blade 15. This was carried down with electrocautery through the full-thickness of the skin and subcutaneous fat. I then did dissection of the umbilicus to lift this up as a flap. I visualize the hernia which was fat containing. I the entire hernia from the umbilicus he would I did sharp dissection with Metzenbaum scissors to define the fascial defect. I was able to reduce the hernia completely. The fascial defect was about 1 cm. I used a Ventralex mesh, small- sized to reinforced this defect. I secured the Prolene straps of the mesh the fascial edge on each side with Prolene 2 sutures I closed the fascia with a [id number] Maxon 1 stitch. The umbilicus was tacked down to the fascia with a Polysorb 3-0 stitch to re-create the dimple. The subcutaneous layer was reapposed with Polysorb 3-0 interrupted sutures. Skin closure was achieved with Polysorb 4-0 subcuticular running stitch The area was infiltrated with lidocaine 1% for postop analgesia Steri-Strips and dressings were applied. The procedure was then completed The patient tolerated the procedure well. There were no immediate complications. Initial and final counts of sponges and instruments were correct. Estimated blood loss was less than 10 cc. The patient was extubated without difficulty and transferred to the recovery room with stable vital signs.
[2024-01-22 08:19] VITALS: BP 124/72; PULSE 62; RESP 16; TEMP 36.3; O2SAT 99
[2024-01-22 08:24] VITALS: BP 130/74; PULSE 57; RESP 17; O2SAT 97
[2024-01-22 08:29] VITALS: BP 129/75; PULSE 60; RESP 17; O2SAT 97
[2024-01-22 08:34] VITALS: BP 122/83; PULSE 56; RESP 17; O2SAT 96
[2024-01-22 08:49] VITALS: BP 129/81; PULSE 55; RESP 16; TEMP 36.3; O2SAT 98
== END 2024-01-22 09:12 | disposition home or self-care (01) ==
PROVIDERS: Nurse Practitioner; PCP Nurse Practitioner Family; Visit Provider Surgery
PROC: (CPT 49591; principal; 2024-01-22 07:30)
DX: K42.9 Umbilical hernia without obstruction or gangrene (principal); I25.10 Atherosclerotic heart disease of native coronary artery without angina pectoris; Z79.82 Long term (current) use of aspirin
CPT/HCPCS: 49591; 36415; 80048; 85027; 93005; C1781; J0690; J2371; J2704; J2795; J3010

== ENCOUNTER → 2024-01-22 05:53 | Outpatient (BNV) | payer MEDICARE, SELFPAY | PROVIDERS: PCP Nurse Practitioner Family; Visit Provider Surgery | DX: K42.9 Umbilical hernia without obstruction or gangrene (principal) | CPT/HCPCS: 49591 ==

== ENCOUNTER 2024-01-31 14:32 | Outpatient (AMB) | payer MEDICARE, SELFPAY ==
--- NOTE | 2024-01-31 14:42 | MHC.OFFVIS ---
Intake Visit Reasons: S/P umbilical hernia Intake Note: This patient presents for a post-op assessment status post umbilical hernia repair. Patient c/o; report no complaints pertaining to surgery. 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 He tolerated the procedure well. He currently denies significant complaints. [facility] Medical History Anxiety Hx of acute bronchitis (08/2023) RSV (respiratory syncytial virus infection) (08/2023) PAD (peripheral artery disease) NSTEMI (non-ST elevated myocardial infarction) (~08/2020) ASHD (arteriosclerotic heart disease) History of transesophageal echocardiography (MICHELE) Umbilical hernia CAD (coronary artery disease) Depression Mitral valve prolapse Surgical History History of umbilical hernia repair Hx of transurethral resection of prostate (~2004) Hx of cystoscopy (~2017) Hx of colonoscopy History of total left hip arthroplasty (~2021) Hx of mitral valve repair (~2020) Hx of cardiac cath S/P CABG x 3 (~2020) S/P TURP Social History Household Members: None Housing: House Are you a primary personal care aide to a significant other at home: No Do you presently have visiting nurse or other home services: No Alcohol intake: never Comment: COUNT CORRECT Patient Tobacco Use Status: Never used Tobacco Review of Systems Const Denies chills and Denies fever(s) Card Denies chest pain, Denies dyspnea and Denies dyspnea on exertion Resp Denies cough, Denies dyspnea and Denies dyspnea on exertion GI Denies hematochezia and Denies change in bowel habits Denies hematuria and Denies difficulty urinating Musc Denies back pain and Denies limited range of motion Neuro Denies focal weakness and Denies convulsions Psych Denies depression and Denies mood swings Physical Exam Const General: comfortable and no acute distress Resp Effort & Inspection: normal respiratory effort GI Other: Umbilical hernia repair site is well healed, repair intact, no evidence of infection Palpation (GI): Soft to palpation Assessment & Plan Assessment & Plan (1) Umbilical hernia: Code(s): K42.9 - Umbilical hernia without obstruction or gangrene Category: Medical Plan: Status post repair with mesh. He is doing well. His repair site is intact. The incision is healing well. I advised him to avoid he lifting anything more than 20 lb for least 3 more weeks. He can follow up on a p.r.n. basis. Coding Level of Care Code Global (80283) Diagnoses Umbilical hernia K42.9
== END 2024-01-31 15:08 | disposition home or self-care (01) ==
PROVIDERS: PCP Nurse Practitioner Family; Visit Provider Surgery
DX: K42.9 Umbilical hernia without obstruction or gangrene (principal)
CPT/HCPCS: 99212

== ENCOUNTER → 2024-01-31 14:32 | Outpatient (BNVA) | payer MEDICARE, SELFPAY | PROVIDERS: PCP Nurse Practitioner Family; Visit Provider Surgery | DX: Z09 Encounter for follow-up examination after completed treatment for conditions other than malignant neoplasm (principal); Z87.19 Personal history of other diseases of the digestive system; Z98.890 Other specified postprocedural states | CPT/HCPCS: 99212 ==

== ENCOUNTER 2024-03-03 19:25 | Emergency (ER) | payer MEDICARE, SELFPAY ==
[2024-03-03 19:33] VITALS: BP 97/66; PULSE 59; RESP 18; TEMP 36.6; O2SAT 96; BMI 27.6
--- NOTE | 2024-03-03 19:35 | ED_ITS ---
HPI - Eye Problem General Chief complaint: Eye Problems Stated complaint: L eye redness, hit by a branch Time Seen by Provider: 03/03/24 21:26 Source: patient Mode of arrival: ambulatory Limitations: no limitations History of Present Illness HPI Narrative: Patient is a 68-year-old male who presents to the emergency department for evaluation. He reports that he was picking a peach off a tree when a branch accidentally scratched the lateral corner of his left eye. He reports that it feels irritated but is not particularly painful. He denies any vision changes. Denies any headache associated with this. He does not wear contact lenses. He reports his tetanus vaccination is up-to-date within the past 5 years. Related Data Home Medications ?Medication ?Instructions ?Recorded ?Confirmed aspirin 81 mg tablet,delayed 81 mg PO DAILY 02/11/22 01/14/24 release atorvastatin 80 mg tablet 80 mg PO DAILY 02/11/22 01/14/24 metoprolol succinate 25 mg 25 mg PO DAILY 02/11/22 01/14/24 tablet,extended release 24 hr acetaminophen 500 mg tablet 500 mg PO Q6H PRN Pain 01/14/24 01/14/24 albuterol sulfate 90 mcg/actuation 2 puff inhalation Q6H PRN 01/14/24 01/14/24 aerosol inhaler (Ventolin HFA) Shortness Of Breath Or Wheezing fluoxetine 40 mg capsule 40 mg PO DAILY 01/14/24 01/14/24 Previous Rx's ?Medication ?Instructions ?Recorded ibuprofen 600 mg tablet 600 mg PO Q6H PRN pain #25 tabs 01/22/24 oxycodone 5 mg tablet 5 mg PO Q4H PRN pain #25 tabs 01/22/24 ofloxacin 0.3 % eye drops 2 drp ophthalmic (eye) QID 7 days 03/03/24 #5 mL Allergies Allergy/AdvReac Type Severity Reaction Status Date / Time bees Allergy Severe Anaphylaxis Verified 03/03/24 19:37 BEE STINGS Review of Systems Review of Systems: Yes all other systems are reviewed and are negative PMFSH Past Medical History Attestation statement: The following information was validated with the patient. Source: old records reviewed Medical History Anxiety Hx of acute bronchitis (08/2023) RSV (respiratory syncytial virus infection) (08/2023) PAD (peripheral artery disease) NSTEMI (non-ST elevated myocardial infarction) (~08/2020) ASHD (arteriosclerotic heart disease) History of transesophageal echocardiography (MICHELE) Umbilical hernia CAD (coronary artery disease) Depression Mitral valve prolapse Surgical History History of umbilical hernia repair (~01/22/24) Hx of transurethral resection of prostate (~2004) Hx of cystoscopy (~2017) Hx of colonoscopy History of total left hip arthroplasty (~2021) Hx of mitral valve repair (~2020) Hx of cardiac cath S/P CABG x 3 (~2020) S/P TURP Social History Social History Household Members: None Housing: House Are you a primary health and social care teacher to a significant other at home: No Do you presently have visiting nurse or other home services: No Alcohol intake: never Comment: COUNT CORRECT Patient Tobacco Use Status: Never used Tobacco Advance Directives: No Advance Directives Information Provided: No Do you have a plan to hurt others: No Plan Physical Exam Vital Signs: Vital Signs: Last Vital Signs Temp 98.3 F 03/03/24 23:09 Pulse 52 03/03/24 23:09 Resp 15 03/03/24 23:09 BP 123/77 03/03/24 23:09 Pulse Ox 95 03/03/24 23:09 O2 Del Method Room Air 03/03/24 23:09 BMI result Body Mass Index 27.6 Appearance: Alert.?Oriented to person, place and time. No acute distress. ?Normal affect. Eyes: Pupils equal, round and reactive to light.? No hyphema. Negative Madeline sign. Sclera injected erythematous on the last subconjunctival hemorrhage. Small area of fluorescein uptake at 3 o'clock- 4 o'clock concerning for corneal abrasion. Visual acuity is normal. intra-ocular pressure 16 on the right, 17 on the left. CVS: Heart sounds normal. Normal heart rate and rhythm.? Pulses normal.?? Respiratory: No respiratory distress.? Lung sounds clear to auscultation bilaterally?? Skin: Skin warm and dry.? Normal skin color.? Neuro: Moves all extremities spontaneously. Sensation intact bilaterally. CN II- XII intact. No focal neuro deficits. Ambulates with normal steady gait. Course Course Course Narrative: This is an RME: Additional HPI, ROS, PE not included below will be deferred to primary provider. RME assessment and note performed by: Georgia Saleem PA-C This is a 22-gpuw-jns-male, CAD s/p 3V CABG and mitral valve valvuloplasty at in 2020 who presents to the ER with a complaint of left eye irritation. Was picking a peach off a tree and a branch scratched him in his left eye. No blurred vision, no current pain. Does not wear contacts. Plan: Eye ecamination Medications Administered Discontinued Medications Generic Name Dose Route Start Last Admin Trade Name Ubaldoq PRN Reason Stop Dose Admin Fluorescein Sodium 1 strip 03/03/24 19:38 03/03/24 21:34 Fluorescein Sodium Strip EYE-LEFT 03/03/24 19:39 1 strip ONCE ONE Administration Tetracaine HCl 1 drop 03/03/24 19:38 03/03/24 21:34 Tetracaine Hcl/Pf 0.5% Oph Simona 4 Ml Drops EYE-LEFT 03/03/24 19:39 1 drop ONCE ONE Administration Medical Decision Making Medical Decision Making MDM Narrative: Patient is a 5-year-old male past medical history of CAD s/p 3V CABG and mitral valve valvuloplasty at in 2020 who presents emergency department for evaluation of left eye injury as per HPI. Admits to scratching of the eye, denies this to be a penetrating injury. He is without pain, no change in acuity, Madeline sign is negative, no hyphema, do not suspect globe rupture. Restrained examination not consistent with orbital fracture. I am unclear to be retro-orbital hemorrhage. On evaluation he has fluorescein uptake concerning for a corneal abrasion, for which she was prescribed antibiotic drops and discussed outpatient follow-up with his computer security manager. Discussed worrisome signs and symptoms that would warrant re-evaluation in the emergency department. Differential Diagnosis Differential Diagnoses: The differential diagnosis associated with the presentation includes (See narrative above) External Record Review External record reviewed: Outpatient record Prescription Management I considered prescription management with: Antibiotic Discharge Plan Discharge Clinical Impression: Corneal abrasion Patient Disposition: Home, Self-Care Instructions: Corneal Abrasion (ED) Additional Instructions: Use antibiotic eyedrops as prescribed. Follow-up with Dr. Colon. Return to emergency department with any new or worsening symptoms or concerns Prescriptions: New ofloxacin 0.3 % drops 2 drp ophthalmic (eye) QID 7 Days Qty: 5 0RF No Action acetaminophen 500 mg Tablet 500 mg PO Q6H PRN (Reason: Pain) albuterol sulfate [Ventolin HFA] 90 mcg/actuation Hfa Aerosol Inhaler 2 puff INHALATION Q6H PRN (Reason: Shortness Of Breath Or Wheezing) fluoxetine 40 mg Capsule 40 mg PO DAILY oxycodone 5 mg tablet 5 mg PO Q4H PRN (Reason: pain) Qty: 25 0RF Rx Instructions: Partial Fill upon patient request. ibuprofen 600 mg tablet 600 mg PO Q6H PRN (Reason: pain) Qty: 25 0RF metoprolol succinate 25 mg tablet extended release 24 hr 25 mg PO DAILY aspirin 81 mg tablet,delayed release (DR/EC) 81 mg PO DAILY atorvastatin 80 mg tablet 80 mg PO DAILY Referrals: Morris Colon [Physician] - Interventions: ED Discharge Assessment Last Done: 03/03/24 23:09 Discharge Date/Time: 03/03/24 23:11 Print Language: Indonesian
[2024-03-03 20:00] VITALS: BP 117/72; PULSE 53; RESP 16; TEMP 36.5; O2SAT 96
[2024-03-03] MEDS: Fluorescein Sodium STRIP 1 STRIP EYE-LEFT (21:34)
[2024-03-03] MEDS: Tetracaine HCl/PF 0.5% Oph Sol 4 ML DROPS 1 DROP EYE-LEFT (21:34)
[2024-03-03 22:00] VITALS: BP 123/77; PULSE 52; RESP 15; TEMP 36.8; O2SAT 95
[2024-03-03 23:09] VITALS: BP 123/77; PULSE 52; RESP 15; TEMP 36.8; O2SAT 95
== END 2024-03-03 23:11 | disposition home or self-care (01) ==
PROVIDERS: Emergency Provider Internal Medicine; PCP Nurse Practitioner Family
DX: S05.02XA Injury of conjunctiva and corneal abrasion without foreign body, left eye, initial encounter (principal); Y29.XXXA Contact with blunt object, undetermined intent, initial encounter; Y93.89 Activity, other specified; Y92.74 Orchard as the place of occurrence of the external cause; Y99.8 Other external cause status
CPT/HCPCS: 99283

== ENCOUNTER 2024-08-11 09:38 | Outpatient (AMB) | payer MEDICARE, SELFPAY ==
--- NOTE | 2024-08-11 10:11 | AM.OFFWIN_ITS ---
Intake Vital Signs 08/11/24 10:12 Weight 186 lb BP 128/68 Blood Pressure Location Rt brachial Position Sitting Pulse 68 Pulse Source Pulse Oximeter Temp 98.3 F Temp Source Oral Pulse Oximetry (%) 95 Oxygen Delivery Method Room Air Intake Visit Reasons: EP lower abd pain, almost passed out this AM Intake Note: Patient here lower abd pain that has been present for a couple of days, he also wanted to talk about right ear pain and woke up this morning with slight chills and had to sit down on the bathroom floor. Patient Tobacco Use Status: Never used Tobacco Allergies bees Allergy (Severe, Verified 08/11/24 10:14) Anaphylaxis BEE STINGS Do you need a note to return to daycare/school/sports/work: No HPI EP lower abd pain, almost passed out this AM HPI Details This note is constructed using voice recognition software. While every effort has been made to ensure accuracy, air pollution compliance inspector errors may have been included. The patient is a 69 year old man who presents to the clinic today with lower abdomen pain bilaterally for the past 5 days. He notes that due to the holidays he has been eating foods that are different from his normal. He has been moving his bowels less frequently. He denies fever, chills, bright red blood per rectum, nausea vomiting. He reports that typically he has a diet very high in vegetables, which he has not been taking in due to the holidays. He also reports that his right ear has a mild pressure in it intermittently, no cough, shortness of breath, sinus congestion, or other URI symptoms. He reports chronic history of cerumen impaction, and he typically uses oil in his ear which seems to help the symptoms. [facility] Medical History Anxiety Hx of acute bronchitis (08/2023) RSV (respiratory syncytial virus infection) (08/2023) PAD (peripheral artery disease) NSTEMI (non-ST elevated myocardial infarction) (~08/2020) ASHD (arteriosclerotic heart disease) History of transesophageal echocardiography (MICHELE) Umbilical hernia CAD (coronary artery disease) Depression Mitral valve prolapse Surgical History History of umbilical hernia repair (~06/11/24) Hx of transurethral resection of prostate (~2004) Hx of cystoscopy (~2017) Hx of colonoscopy History of total left hip arthroplasty (~2021) Hx of mitral valve repair (~2020) Hx of cardiac cath S/P CABG x 3 (~2020) S/P TURP Social History Household Members: None Housing: House Are you a primary restorative care technician to a significant other at home: No Do you presently have visiting nurse or other home services: No Alcohol intake: never Comment: COUNT CORRECT Patient Tobacco Use Status: Never used Tobacco Review of Systems Const All systems reviewed & are unremarkable except as noted in HPI and below Physical Exam Vital Signs: Last Vital Signs Temp 98.3 F 08/11/24 10:12 Pulse 68 08/11/24 10:12 BP 128/68 08/11/24 10:12 Pulse Ox 95 08/11/24 10:12 Oxygen Delivery Method Room Air 08/11/24 10:12 Const General: cooperative, healthy appearing, comfortable, no acute distress and well developed Orientation/consciousness: patient oriented x3 Limitations: no limitations HEENT Head: Yes normal to inspection Ears: hearing grossly normal bilaterally and TM's normal bilaterally (Mild cerumen in canal) General nose exam: Normal external nose present Face and sinus: Yes normal facial exam Eyes General: appearance normal, both eyes and all related structures Neck Neck: Yes normal visual inspection and Yes full ROM Resp Effort & Inspection: normal respiratory effort and able to speak in complete sentences Auscultation: clear to auscultation bilaterally Cardio Rate: regular rate Rhythm: regular rhythm Heart sounds: normal S1 and S2 GI Inspection: Yes normal to inspection Palpation (GI): Soft to palpation and nontender Percussion: Yes normal to percussion Auscultation: Hypoactive bowel sounds present Skin General skin exam: no rashes or lesions noted Neuro General: patient oriented x3 Assessment & Plan Assessment & Plan (1) Constipation: Code(s): K59.00 - Constipation, unspecified Qualifiers: Constipation type: unspecified constipation type Qualified Code(s): K59.00 - Constipation, unspecified Plan: Reassuring physical examination, no signs or concerns for diverticulitis or appendicitis based on physical examination and history. Advised patient to in crease dietary fiber, may try supplemental for the next several days to help improve his symptoms. Advised follow up with worsening or failure to resolve. Advised ER with sudden acute pain, fever, or loss of appetite. Plan See above for full details and plan. Hard cerumen present in canal, not impacted. Advised patient try a Debrox for symptomatic management. Coding Level of Care Code Est Pt Level 3 (13912) Diagnoses Constipation, unspecified constipation type K59.00 Constipation type: unspecified constipation type
[2024-08-11 10:12] VITALS: BP 128/68; PULSE 68; TEMP 36.8; O2SAT 95
== END 2024-08-11 10:41 | disposition home or self-care (01) ==
PROVIDERS: PCP Nurse Practitioner Family; Visit Provider Registered Nurse
DX: K59.00 Constipation, unspecified (principal)

== ENCOUNTER → 2024-08-11 09:38 | Outpatient (BNVA) | payer MEDICARE, SELFPAY | PROVIDERS: PCP Nurse Practitioner Family; Visit Provider Registered Nurse | DX: K59.00 Constipation, unspecified (principal) | CPT/HCPCS: 99212 ==

== ENCOUNTER 2025-03-09 09:40 | Outpatient (AMB) | payer MEDICARE, SELFPAY ==
--- NOTE | 2025-03-09 09:50 | A.OFFVIS_ITS ---
Vital Signs 03/09/25 09:55 Height 5 ft 10 in Weight 180 lb BMI 25.8 BP 128/68 Blood Pressure Location Rt brachial Position Sitting Pulse 66 Pulse Source Pulse Oximeter Pulse Oximetry (%) 96 Oxygen Delivery Method Room Air Intake Visit Reasons: colo screening Intake Note: New pt for recall colo. Last in 2019 w/ Dr. Goyal. Hx of TA polypectomy. CC; Pt denies any GI sx or concerns at this time. Vocational Services Specialist Required: No Allergies bees Allergy (Severe, Verified 03/09/25 09:50) Anaphylaxis BEE STINGS HPI HPI colo screening: Details: 69 year old? male with past medical history of umbilical hernia, CAD, NSTEMI in 2020 is here today for pre colonoscopy screening.? Patient was sent to us by his PCP.? Last colonoscopy in March of [address] Goyal. Tubular adenoma without high-grade dysplasia or carcinoma found in hepatic flexure.? Patient denies any gastrointestinal symptoms in the past or at present.? No family history of colon cancer. Patient had NSTEMI in 2020. Three-vessel disease, CABG x3. [facility] # [phone]. ? Denies history of difficulty with sedation or anesthesia in the past.? Negative for history of sleep apnea.? Denies any history of cardiac, renal, pulmonary, or hepatic disease.?? No history of infectious? diseases like hepatitis A, B, C, HIV or tuberculosis.? Patient is on low-dose aspirin PFSH Medical History Anxiety Hx of acute bronchitis (08/2023) RSV (respiratory syncytial virus infection) (08/2023) PAD (peripheral artery disease) NSTEMI (non-ST elevated myocardial infarction) (~08/2020) ASHD (arteriosclerotic heart disease) History of transesophageal echocardiography (MICHELE) Umbilical hernia CAD (coronary artery disease) Depression Mitral valve prolapse Surgical History S/P colon polypectomy History of umbilical hernia repair (~01/22/24) Hx of transurethral resection of prostate (~2004) Hx of cystoscopy (~2017) Hx of colonoscopy History of total left hip arthroplasty (~2021) Hx of mitral valve repair (~2020) Hx of cardiac cath S/P CABG x 3 (~2020) S/P TURP Social History Household Members: None Housing: House Are you a primary career development engineer to a significant other at home: No Do you presently have visiting nurse or other home services: No Alcohol intake: never Comment: COUNT CORRECT Patient Tobacco Use Status: Never used Tobacco Review of Systems Const Denies weight gain and Denies weight loss ENT Reports no additional complaints, Denies dysphagia and Denies odynophagia Card Reports no additional complaints Resp Reports no additional complaints GI Denies abdominal pain, Denies belching, Denies melena, Denies bloating, Denies change in bowel habits, Denies dysphagia, Denies excessive flatus, Denies d yspepsia, Denies heartburn, Denies diarrhea, Denies loose stools, Denies nausea, Denies odynophagia and Denies vomiting Reports no additional complaints Musc Reports no additional complaints Neuro Reports no additional complaints Psych Reports no additional complaints Endo Reports no additional complaints Physical Exam Vital Signs: Last Vital Signs Pulse 66 03/09/25 09:55 BP 128/68 03/09/25 09:55 Pulse Ox 96 03/09/25 09:55 Oxygen Delivery Method Room Air 03/09/25 09:55 BMI result Body Mass Index 25.8 Const General: healthy appearing, no acute distress and well developed Nutritional Appearance: well nourished Orientation/consciousness: patient oriented x3 Resp Effort & Inspection: normal respiratory effort, able to speak in complete sentences, no tracheal deviation and symmetric chest movement Auscultation: clear to auscultation bilaterally Cardio Rate: regular rate GI Inspection: Yes normal to inspection and No distended Palpation (GI): Soft to palpation, not firm, nontender and No hepatosplenomegaly present Auscultation: normal bowel sounds General: Yes no CVA tenderness Back/Spine/Pelvis Back: no CVA tenderness Skin General skin exam: elasticity normal, turgor normal and dry skin Neuro General: patient oriented x3 Psych Appearance: grossly normal Mental Status: mental status grossly normal Assessment & Plan Assessment & Plan (1) Screen for colon cancer: Code(s): Z12.11 - Encounter for screening for malignant neoplasm of colon Plan Patient denies any GI, cardiac or respiratory symptoms.? Denies any issues with anesthesia in the past.? Denies any history of sleep apnea.? No history infectious diseases in the past or present.? Patient is on low-dose aspirin. No family or personal history of colon cancer. Patient sees Dr. Manriquez in [facility] phone # [phone]. Patient denies melena, hematochezia, unintentional weight loss or ribbon like stools.? Discussed at length the pre-procedure,? prep, diet & medications as well as what to expect prior, during and after the procedure.?? Stressed the importance of good bowel prep.? Recommended the use of Vaseline or Calmoseptine OTC & baby wipes with bowel movements to promote comfort.? ?Patient verbalizes understanding and agrees to plan of care.? He was given the opportunity to ask questions and all questions answered.? We will see him after the procedure.? Medications: New bisacodyl (Dulcolax (bisacodyl)) take 4 tabs at noon the day before your colonoscopy 20 mg (4 x 5 mg) PO ONCE 4 tabs 0RF constipation 1 day Z12.11 - Encounter for screening for malignant neoplasm of colon polyethylene glycol 3350 (Miralax) As directed by gastroenterology department at [facility] 238 grams PO ONCE 238 grams 0RF Z12.11 - Encounter for screening for malignant neoplasm of colon Coding Level of Care Code New Pt Level 3 (81012) Diagnoses Screen for colon cancer Z12.11 Time Spent (min) 40 Comment 30 minutes spent with patient and additional 10 minutes spent reviewing his records
[2025-03-09 09:55] VITALS: BP 128/68; PULSE 66; O2SAT 96; BMI 25.8
--- OUTSIDE RECORDS SUMMARY | 2025-03-09 10:34 | XMS_ITS ---
Author Name [facility] Organization Unknown Allergies Allergen Reaction Severity Comment Documented Date Source Statu s BEE VENOM UNKNOWN/PATIENT AND FAMILY UNABLE TO DEFINE 08/16/2023 [facility] active Problems Problem Status Onset Date Problem Type Date of Resolution Source Urethral stricture active 2024-08-28 ProblemAct [facility] Bilateral impacted cerumen active EncounterDiagnosisAct [facility] Abnormal auditory perception of right ear active EncounterDiagnosisAct [facility] Achilles tendinitis active 2021-12-05 ProblemAct [facility] Peripheral arterial disease active 2021-09-28 ProblemAct [facility] Arteriosclerosis of coronary artery active 2024-08-28 ProblemAct [facility] History of coronary artery bypass surgery active 2020-08-24 ProblemAct [facility] Umbilical hernia active 2024-08-28 ProblemAct [facility] Impaired fasting glucose active 2024-08-28 ProblemAct [facility] Major depressive disorder in full remission active 2024-08-28 ProblemAct [facility] History of total hip replacement active 2021-09-19 ProblemAct [facility] Meralgia paresthetica active 2024-08-28 ProblemAct [facility] Mitral valve prolapse active 2024-08-28 ProblemAct [facility] Arthritis of left hip active 2024-08-28 ProblemAct [facility] Adenomatous polyp of colon active 2024-08-28 ProblemAct [facility] Arthropathy active 2024-08-28 ProblemAct [facility] Immunizations Vaccine Date Source Lot Number Status Pneumococcal Conjugate 20-Valent 05/16/2023 [facility] [id number] completed Influenza Virus Trivalent Sp lit Vaccine (MDV) IM 05/14/2023 [facility] [id number] completed Pneumococcal Polysaccharide 23-Valent 08/30/2021 [facility] [id number] completed Influenza Virus Trivalent Sp lit Vaccine (MDV) IM 05/19/2021 [facility] [id number] completed Influenza Whole 04/28/2020 [facility] UNK completed Zoster Vaccine Recombinant (Shingrix) 04/28/2020 [facility] UNK completed Zoster Vaccine Recombinant (Shingrix) 06/12/2019 [facility] UNK completed Influenza Whole 05/28/2019 [facility] UNK completed Pneumococcal Conjugate 13-Valent 07/19/2018 [facility] UNK completed Influenza Virus Trivalent Sp lit Vaccine (MDV) IM 05/31/2018 [facility] [id number] completed Pneumococcal Conjugate 13-Valent 05/31/2018 [facility] [id number] completed Influenza Virus Trivalent Sp lit Vaccine (MDV) IM 04/27/2018 [facility] UNK completed Influenza Virus Trivalent Sp lit Vaccine (MDV) IM 08/24/2017 [facility] [id number] completed Influenza Virus Trivalent Sp lit Vaccine (MDV) IM 06/27/2016 [facility] [id number] completed Influenza Virus Trivalent Sp lit Vaccine (MDV) IM 05/13/2015 [facility] [id number] completed Tdap 05/10/2015 [facility] [id number] completed Zoster Vaccine Live/Attenuated (Zostavax) 10/30/2014 [facility] UNK completed Influenza Virus Trivalent Sp lit Vaccine (MDV) IM 06/10/2014 [facility] [id number] completed Influenza Virus Trivalent Sp lit Vaccine (MDV) IM 05/30/2012 [facility] [id number] completed Influenza Virus Trivalent Sp lit Vaccine (MDV) IM 04/21/2012 [facility] UNK completed Influenza Virus Trivalent Sp lit Vaccine (MDV) IM 06/11/2011 [facility] UNK completed DT 09/18/2009 [facility] [id number] completed Influenza Virus Trivalent Sp lit Vaccine (MDV) IM 07/15/2009 [facility] [id number] completed Tdap 07/08/2008 [facility] [id number] completed DT 08/17/2007 [facility] [id number] completed Influenza Virus Trivalent Sp lit Vaccine (MDV) IM 05/23/2007 [facility] [id number] completed Influenza Virus Trivalent Sp lit Vaccine (MDV) IM 07/18/2006 [facility] [id number] completed Encounters Encounter Type Encounter Reason [facility] Team Organization Name Specialty Phone Email Start Date End [facility] 09/16/2024 10/29/2024 [facility] 08/22/2024
--- OUTSIDE RECORDS SUMMARY | 2025-03-09 10:34 | XMS_ITS | Clinical Summary ---
Author Organization [facility] Address [address] [facility] [address] [place] [id number] Phone Care Team Providers Care Water Rights Specialist Name Role Phone Shivam [place] MD Primary Care Provide r Allergies Active Allergy Reactions Criticality Noted Date Comments Allergen Xqj-Vcsov-Owsry Bee 024 Medications atorvastatin (LIPITOR) 80 MG tablet Take 80 mg by mouth daily. Active acetaminophen (TYLENOL) 500 MG tablet Take 500 mg by mouth every 6 (six) hours as needed for pain (specific location in comments). Active metoprolol succinate (TOPROL-XL) 25 MG 24 hr tablet Take 25 mg by mouth daily. Active FLUoxetine (PROZAC) 20 MG capsule Take 20 mg by mouth daily. Active aspirin 81 MG EC tablet Take 81 mg by mouth daily. Active guaiFENesin-cod eine (ROBITUSSIN AC) 100-10 mg/5 mL liquid Take 5 mL (10 mg of codeine total) by mouth 3 (three) times a day as needed for cough. 237 mL 08/16/2023 Active Active Problems No known active problems Social History Tobacco Use Types Packs/Day Years Used Date Smoking Tobacco: Never Smokeless Tobacco: Never Alcohol Use Standard Drinks/Week Comments Yes 0 (1 standard drink = 0.6 oz pur e alcohol) RARELY Education Answer Date Recorded Are you interested in more education? Not on lacho e 12/08/2022 Are you concerned about learning? Not on file 12/08/2022 No 12/08/2022 No 12/08/2022 Digital Access Answer Date Recorded No 01/06/2023 No 01/06/2023 No 01/06/2023 Reliable internet access at home? Not on file 01/06/2023 Device with a working camera? Not on file Intimate Partner Violence Answer Date R ecorded Are you denied basic needs s uch as food, clothing, or medical care? No 08/16/2023 In the past 12 months have y ou been in a relationship with a person who hurts, threatens, or tries to control you? No 08/16/2023 Are you denied basic needs s uch as food, clothing, or medical care? No 08/16/2023 In the past 12 months have y ou been in a relationship with a person who hurts, threatens, or tries to control you? No 08/16/2023 Sex and Gender Information Value Date Recorded Sex Assigned at Male 08/16/2023 11:49 AM EST Legal Sex Male 9:58 PM EDT Gender Identity Male 08/16/2023 11:49 AM EST Sexual Orientation Not on file Last Filed Vital Signs Vital Sign Reading Time Taken Comments Blood Pressure 118/81 08/16/2023 7:39 PM EST Pulse 64 08/16/2023 7:39 PM EST Temperature 36.8 C (98.2 F) 08/16/2023 7:39 PM EST Respiratory Rate 18 08/16/2023 7:39 PM EST Oxygen Saturation 96% 08/16/2023 7:39 PM EST Inhaled Oxygen Concentration - - Weight 77.1 kg (170 lb) 08/16/2023 11:48 AM EST Height 175.3 cm (5' 9 ) 08/16/2023 11:48 AM EST Body Mass Index 25.1 08/16/2023 11:48 AM EST Plan of Treatment Health Maintenance Due Date Last Done Comments LIPID PANEL 1955 DEPRESSION SCREENING 1965 HEPATITIS C SCREENING 1971 COLOGUARD 1998 COLONOSCOPY 1998 COLORECTAL CANCER SCREENING 1998 FIT TEST 1998 FOBT 1998 SIGMOIDOSCOPY 1998 VIRTUAL COLONOSCOPY 1998 Adult Td,Tdap Booster 07/08/2018 07/08/2008 PNEUMOCOCCAL VACCINES (50+ years) (2 of 2 - PPSV23) 05/31/2019 05/31/2018 ZOSTER VACCINES (2 of 2) 06/23/2020 04/28/2020 COVID-19 VACCINE (3 - 2023-2 5 season) 2024 10/27/2020, 10/05/2020 RSV VACCINE (1 - 1-dose 75+ series) 2028 SMOKING STATUS SCREENING (On ce After 26 Yrs) Completed 05/21/2021 HEPATITIS A VACCINES Aged Out No long er eligible based on patient's age to complete this topic HIB VACCINES Aged Out No longer eligi ble based on patient's age to complete this topic MENINGOCOCCAL VACCINES (ACWY) Aged Out No longer eligible based on patient's age to complete this topic MENINGOCOCCAL VACCINES (B) Aged Out N o longer eligible based on patient's age to complete this topic Medical Devices Not on file Insurance [place] MED[place] HMO BLUE REPLACEMENT [place] BLUE [place]ACEMENT MEDICARE HMO BLUE REPLACEMENT MEDICARE HMO BLUE REPLACEMENT MEDICARE HMO BLUE REPLACEMENT MEDICARE HMO BLUE REPLACEMENT Care Teams Water Rights Specialist Relationship Specialty Start Date End Date Shivam [place] MD [address] [place] [address] [phone] PCP - General 05/28/17 Additional Source Comments The information contained in this document represents components of the legal health record. It is not the complete legal health record.[facility]
--- OUTSIDE RECORDS SUMMARY | 2025-03-09 10:34 | XMS_ITS | Clinical Summary ---
Author Organization [facility] Address [address] [place] [address] Care Team Providers Care Certified Physical Therapist Assistant Name Role Phone Unavailable Primary Care Provider Unavailabl e Allergies Active Allergy Reactions Criticality Noted Date Comments Bee Venom Unknown/Patient and Family Unable to Define Medium 08/16/2023 Medications Aspirin Low Dose 81 MG EC tablet Take 81 mg by mouth. Active atorvastatin (LIPITOR) 80 MG tablet Take 80 mg by mouth daily. Active FLUoxetine (PROzac) 40 MG capsule Take 1 capsule by mouth. 01/15/2024 Active metoPROLOL SUCCINATE (TOPROL-XL) 25 MG 24 hr tablet Take 25 mg by mouth daily. Active Active Problems Problem Noted Date Diagnosed Date Adenomatous polyp of colon 08/28/2024 Arteriosclerosis of coronary artery 08/28/2024 Arthritis of left hip 08/28/2024 Arthropathy 08/28/2024 Impaired fasting glucose 08/28/2024 Overview (08/28/2024): advised pre diabetic Major depressive disorder in full remission 08/13 Overview (08/28/2024): PHQ9;zero no hx suicidal ideation Meralgia paresthetica 08/28/2024 Mitral valve prolapse 08/28/2024 Umbilical hernia 08/28/2024 Urethral stricture 08/28/2024 Achilles tendinitis 12/05/2021 Peripheral arterial disease 09/28/2021 History of total hip replacement 09/19/2021 History of coronary artery bypass surgery 2020 Immunizations Immunization Administration Dates Next Due DT 09/18/2009,08/17/2007 Influenza Virus Trivalent Sp lit Vaccine (MDV) IM 05/14/2023,05/19/2021,05/31/2018,04/27,08/24/2017,06/27/2016,05/13/2015 ,06/10/2014,05/30/2012,04/21/2012,05/15,07/15/2009,05/23/2007, 6 Influenza Whole 04/28/2020,05/28/2019 Pneumococcal Conjugate 13-Valent 07/19/2018,05/13 Pneumococcal Conjugate 20-Valent 05/16/2023 Pneumococcal Polysaccharide 23-Valent 08/30/2021 Tdap 05/10/2015,07/08/2008 Zoster Vaccine Live/Attenuat ed (Zostavax) 10/30/2014 Zoster Vaccine Recombinant (Shingrix) 04/28/2020 ,06/12/2019 Family History Medical History Relation Name Comments Heart disease Father Heart disease Mother Relation Name Status Comments Father Mother Social History Tobacco Use Types Packs/Day Years Used Date Smoking Tobacco: Never Passive Smoke Exposure: Never Smokeless Tobacco: Never Tobacco Cessation:Counseling Given: Not Answered Alcohol Use Standard Drinks/Week Comments Never 0 (1 standard drink = 0.6 oz pur e alcohol) Sex and Gender Information Value Date Recorded Sex Assigned at Male 08/21/2024 3:16 PM EST Legal Sex Male 3:14 PM EST Gender Identity Male 08/21/2024 3:16 PM EST Sexual Orientation Heterosexual (straight) 08/21 3:16 PM EST Last Filed Vital Signs Vital Sign Reading Time Taken Comments Blood Pressure - - Pulse - - Temperature - - Respiratory Rate - - Oxygen Saturation - - Inhaled Oxygen Concentration - - Weight 80.7 kg (178 lb) 08/28/2024 2:50 PM EST Height 177.8 cm (5' 10 ) 08/28/2024 2:50 PM EST Body Mass Index 25.54 08/28/2024 2:50 PM EST Plan of Treatment Health Maintenance Due Date Last Done Comments Hepatitis C Virus Screening 1955 Colonoscopy 1998 COVID-19 Vaccine ( season) 2024 02/28/2022, 06/07/2021, 10/27/2020, Additional history exists Influenza Vaccine 03/13/2025 05/14/2023, , 04/28/2020, Additional history exists DTaP/Tdap/Td Vaccines (5 - Td or Tdap) 05/10/2025 05/10/2015, 09/18/2009, 07/08/2008, Additional history exists RSV Vaccine 60 years and older and Patients (1 - 1-dose 75+ series) 2028 Zoster (Shingles) Vaccine Completed 2019, 06/12/2019, 10/30/2014 Pneumococcal Vaccines 50+ Completed 2022, 08/30/2021, 07/19/2018, Additional history exists Hepatitis B Vaccines Aged Out No long er eligible based on patient's age to complete this topic [facility] OUT OF NETWORK
== END 2025-03-09 10:36 | disposition home or self-care (01) ==
LOC: HO.HGI 09:41
PROVIDERS: PCP Nurse Practitioner Family; Visit Provider Nurse Practitioner Family
DX: Z12.11 Encounter for screening for malignant neoplasm of colon (principal)
CPT/HCPCS: 99024

== ENCOUNTER → 2025-03-09 09:40 | Outpatient (BNVA) | payer MEDICARE, SELFPAY | PROVIDERS: PCP Nurse Practitioner Family; Visit Provider Nurse Practitioner Family | DX: Z12.11 Encounter for screening for malignant neoplasm of colon (principal) | CPT/HCPCS: 99212 ==

== ENCOUNTER 2025-04-24 11:15 | Outpatient (AMB) | payer MEDICARE, SELFPAY ==
[2025-04-24 11:51] VITALS: BP 108/70; PULSE 62; RESP 16; TEMP 36.5; O2SAT 95; BMI 27.5
--- NOTE | 2025-04-24 11:51 | MHC.OFFWIV ---
Intake Vital Signs 04/24/25 11:51 Height 5 ft 10 in Weight 192 lb BMI 27.5 BP 108/70 Blood Pressure Location Lt brachial Position Sitting Respiration 16 Pulse 62 Pulse Source Pulse Oximeter Temp 97.7 F Temp Source Oral Pulse Oximetry (%) 95 Oxygen Delivery Method Room Air Intake Visit Reasons: ep neck pain Patient Tobacco Use Status: Never used Tobacco Allergies bees Allergy (Severe, Verified 03/09/25 09:50) Anaphylaxis BEE STINGS HPI ep neck pain HPI Details This is a 70 year old male patient who presents to the ID clinic today with report of tightness/pain in the right side of his neck. 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 He feels this is the reason his neck is feeling this way. He reports pain/tightness are worse at night and when trying to get comfortable when sleeping. Denies any radiation of pain down arms. Denies any prior injury. [facility] Medical History Anxiety Hx of acute bronchitis (08/2023) RSV (respiratory syncytial virus infection) (08/2023) PAD (peripheral artery disease) NSTEMI (non-ST elevated myocardial infarction) (~08/2020) ASHD (arteriosclerotic heart disease) History of transesophageal echocardiography (MICHELE) Umbilical hernia CAD (coronary artery disease) Depression Mitral valve prolapse Surgical History S/P colon polypectomy History of umbilical hernia repair (~01/22/24) Hx of transurethral resection of prostate (~2004) Hx of cystoscopy (~2017) Hx of colonoscopy History of total left hip arthroplasty (~2021) Hx of mitral valve repair (~2020) Hx of cardiac cath S/P CABG x 3 (~2020) S/P TURP Social History Household Members: None Housing: House Are you a primary nursing care partner to a significant other at home: No Do you presently have visiting nurse or other home services: No Alcohol intake: never Comment: COUNT CORRECT Patient Tobacco Use Status: Never used Tobacco Review of Systems Const All systems reviewed & are unremarkable except as noted in HPI and below Physical Exam Vital Signs: Last Vital Signs Temp 97.7 F 04/24/25 11:51 Pulse 62 04/24/25 11:51 Resp 16 04/24/25 11:51 BP 108/70 04/24/25 11:51 Pulse Ox 95 04/24/25 11:51 Oxygen Delivery Method Room Air 04/24/25 11:51 BMI result Body Mass Index 27.5 Const General: cooperative, healthy appearing, comfortable and no acute distress HEENT Head: Yes normal to inspection Ears: hearing grossly normal bilaterally Neck Neck: Yes full ROM, Yes no lymphadenopathy, Yes trachea midline and Yes supple Resp Effort & Inspection: normal respiratory effort Back/Spine/Pelvis Cervical Spine: normal cervical lordosis, cervical ROM normal (neg spurling) and cervical muscular tenderness (right side, levator) Skin General skin exam: no rashes or lesions noted Extrem General: Yes capillary refill normal and Yes no clubbing, cyanosis or edema Psych Appearance: grossly normal Mental Status: mental status grossly normal Speech and movement: Normal speech and movement present Assessment & Plan Assessment & Plan (1) Acute strain of neck muscle: Code(s): S16.1XXA - Strain of muscle, fascia and tendon at neck level, initial encounter Qualifiers: Encounter type: initial encounter Qualified Code(s): S16.1XXA - Strain of muscle, fascia and tendon at neck level, initial encounter Plan: This appears to be a strain of the right levator muscle. We discussed conservative measures with ice/heat application, gentle stretching, and NSAIDs. I will prescribe him Ibuprofen and will also start him on a prn dose of cyclobenzaprine to use at bedtime as needed, as this is his most challenging time with the pain. He can try gentle massage and stretching as tolerated. If he does not improve with conservative treatment he can return to the clinic for further evaluation. He verbalizes understanding and agrees to plan. Medications: New ibuprofen 600 mg PO Q8H PRN 90 tabs 0RF pain cyclobenzaprine 10 mg PO BEDTIME PRN 7 tabs 0RF muscle spasm 7 days S16.1XXA - Strain of muscle, fascia and tendon at neck level, initial encounter Coding Level of Care Code Est Pt Level 4 (31276) Diagnoses Acute strain of neck muscle, initial encounter S16.1XXA Encounter type: initial encounter
--- OUTSIDE RECORDS SUMMARY | 2025-04-24 13:20 | XMS_ITS | Clinical Summary ---
Author Organization [facility] Address [address] [facility] [address] [place] [phone] Phone Care Team Providers Care Tile Designer Name Role Phone Shivam [place] MD Primary Care Provide r Allergies Active Allergy Reactions Criticality Noted Date Comments Allergen Cgl-Ayfsb-Okwrd Bee 024 Medications atorvastatin (LIPITOR) 80 MG [...] ZOSTER VACCINES (2 of 2) 06/23/2020 04/28/2020 INFLUENZA VACCINE (#1) 2025 , 04/28/2020, 05/31/2018, Additional history exists COVID-19 VACCINE (2024- season) 2025 10/27/2020, 10/05/2020 RSV VACCINE (1 - 1-dose 75+ series) 2028 SMOKING STATUS SCREENING (Once After 26 Yrs) Completed 05/21/2021 HEPATITIS A [...] topic Medical Devices Not on file Insurance MEDICARE HMO BLUE REPLACEMENT MEDICARE HMO BLUE REPLACEMENT MEDICARE HMO BLUE REPLACEMENT MEDICARE HMO BLUE REPLACEMENT MEDICARE HMO BLUE REPLACEMENT MEDICARE HMO BLUE REPLACEMENT Care Teams Tile Designer Relationship Specialty Start Date End Date Shivam [place] MD [address] [place] [phone] PCP - General 05/28/17 Additional Source Comments The information contained in this document represents components of the legal health record. It is not the complete legal health record.[facility]
--- OUTSIDE RECORDS SUMMARY | 2025-04-24 13:20 | XMS_ITS | Clinical Summary ---
Author Organization [facility] Address [address] [place] [address] Care Team Providers Care Cutch Cleaner Name Role Phone Unavailable Primary Care Provider [...] Health Maintenance Due Date Last Done Comments Advance Care Planning 1955 Hepatitis C Virus Screening 1955 Colonoscopy 1998 [...] patient's age to complete this topic [facility]
== END 2025-04-24 12:46 | disposition home or self-care (01) ==
PROVIDERS: PCP Nurse Practitioner Family; Visit Provider Nurse Practitioner Family
DX: S16.1XXA Strain of muscle, fascia and tendon at neck level, initial encounter (principal)

== ENCOUNTER → 2025-04-24 11:15 | Outpatient (BNVA) | payer MEDICARE, SELFPAY | PROVIDERS: PCP Nurse Practitioner Family | DX: S16.1XXA Strain of muscle, fascia and tendon at neck level, initial encounter (principal); X58.XXXA Exposure to other specified factors, initial encounter; Y93.9 Activity, unspecified; Y92.9 Unspecified place or not applicable; Y99.9 Unspecified external cause status | CPT/HCPCS: 99212 ==